=== PATIENT | female | born 1955 | race Two or more races ===

== ENCOUNTER 2016-06-13 11:08 | Observation (INO) | payer OTHER ==
[~2016-06-13] VITALS: Ht 162.6 cm; Wt 78.6 kg
[~2016-06-13 11:08] MED LIST: NO MEDS.
[2016-06-13] MEDS ORDERED: ASPIRIN 325 MG TAB PO STA (11:16)
--- NOTE | 2016-06-13 11:25 | ERA ---
ER Documentation Chief Complaint Date/Time DATE: 06/13/16 TIME: 11:22 Chief Complaint CHEST PRESSURE FOR THE PAST 3 DAYS. NO N/V/ NO SOB NOTED. HPI This is a 61-year-old female with no past medical history that presents to the emergency department complaining of intermittent chest pressure that has been present since Friday, 6 days prior to arrival. The patient indicated the chest pressure initially occurred Friday evening while she was sitting down after she had eaten a meal. She attributed this discomfort to possible gas. However she did not experience any history of GERD regurgitation. The patient indicates that she awoke Friday morning with a similar onset of chest pressure that lasted for roughly 10 minutes and then spontaneously resolved. Yesterday evening she had a repeat chest pressure and again roughly 3 hours prior to arrival she developed a similar episode of chest pressure that did not radiate to the neck arm back or jaw. She stated the chest pressure was 8 out of 10 in intensity. She had no associated symptoms of nausea vomiting or diaphoresis. She has had no recent travel or prolonged immobilization and has no shortness of breath at rest or exertion. The patient has no medications that she takes at home nor does she smoke cigarettes. She does indicate that her father of a myocardial infarction at the age of 51. ROS All systems reviewed and are negative except as per history of present illness. Medications Home Meds Reported Medications [No Meds.] No Conflict Check 05/13/14 Allergies Allergies: Coded Allergies: No Known Drug Allergies (Unverified Allergy, Unknown, 05/13/14) PMhx/Soc History of Surgery: Yes (CYST REMOVED, RIGHT BREAST IN 1972) Anesthesia Reaction: No Hx Neurological Disorder: No Hx Respiratory Disorders: No Hx Cardiac Disorders: No Hx Psychiatric Problems: No Hx Miscellaneous Medical Probl: No Hx Alcohol Use: No Hx Substance Use: No Hx Tobacco Use: No Physical Exam Vitals Vital Signs Date Time Temp Pulse Resp B/P Pulse Ox O2 Delivery O2 Flow Rate FiO2 06/13/16 11:11 98.6 67 20 119/61 100 Physical Exam Constitutional:Well-developed. Well-nourished. HEENT:Normocephalic. Atraumatic.Pupils were equal round reactive to light. Moist mucous membranes.No tonsillar exudates. Neck: No nuchal rigidity. No lymphadenopathy. No posterior cervical spine tenderness or step-offs. Respiratory: Not using accessory muscles of respiration.Lungs were clear to auscultation bilaterally. No rhonchi. No rales. No wheezing. Cardiovascular: Regular rate regular rhythm.No murmurs. No rubs were appreciated.S1, S2 normal. Distal pulses are palpable 2+ bilaterally. GI: Abdomen was soft. Nontender. Non Distended. No pulsatile abdominal masses or bruits. No rebound. No guarding. Bowel sounds were present and normal. Muscle skeletal: Full range of motion of both the upper and lower extremities bilaterally.Normal muscle tone.No assymetrical calf tenderness or swelling. Skin: No petechia, no purpura. No lesions on the palms or the soles of the feet. No maculopapular rash. NEURO: Patient was alert, awake, orientated x3.No facial droop. Gait observed and normal with no ataxia.Speech had regular rate and rhythm. No focal neurological deficits. Results 24 hrs Current Medications Medications (Trade) Dose Ordered Sig/Huma Route PRN Reason Start Time Stop Time Status Last Admin Dose Admin Aspirin (Aspirin) 325 mg ONCE STAT PO 06/13/16 11:16 06/13/16 11:18 DC Nitroglycerin (Nitroglycerin (Sl Tab) 0.4 Mg) 1 tab Q5M UP TO 3 DOSES PRN SL CHEST PAIN 06/13/16 11:30 Procedures/MDM The patient presented to the emergency department with chest pain. My clinical evaluation and workup was to distinguish minor causes of chest pain from acute life threatening conditions such as myocardial infarction, pulmonary embolism, aortic dissection, esophageal rupture, cardiac tamponade. The patient was placed on a cardiac technologist and continuous pulse oximetry. IV access established by nursing staff. The patient received 325 mg of aspirin p.o. and nitroglycerin with no changes in her symptoms. 12 Lead EKG tracing ordered and reviewed by myself showed: Normal sinus rhythm of 60 bpm and no arrhythmia. SC interval normal. QRS duration normal. No ST segment elevation No ST segment depression. No changes consistent with acute ischemia. Given that the patient has significant family history of coronary artery disease with no previous cardiac workup I did feel the patient required admission for serial 12-lead EKG tracings and cardiac set of enzymes. The patient will be admitted to the hospitalist in serious condition to the telemetry service Departure Diagnosis: Primary Impression: Chest pain Condition: Serious CHYNA KHAN Jun 13, 2016 11:25
[2016-06-13] MEDS ORDERED: NITROGLYCERIN (SL) 0.4 MG TAB SL PRN ×2 (11:30→15:00)
--- NOTE | 2016-06-13 11:55 | RADRPT ---
PROCEDURE: Chest Radiograph. CLINICAL INDICATION: Chest pain TECHNIQUE: Single frontal chest radiograph. COMPARISON: None available FINDINGS: The cardiomediastinal silhouette is within normal limits. No infiltrate or effusion is seen. Th e bones are intact. IMPRESSION: 1. Unremarkable chest radiograph. RPTAT: KK .Jeremy Lan MD, MD Date Time Electronically viewed and signed by .Jeremy Lan MD, on 06/13/2016 11:54 .B/
[2016-06-13 12:11] LABS: BASOPHILS % 0.4 % (0.0-2.0); EOSINOPHILS # 0.1 10^3/ul (0.0-0.5); EOSINOPHILS % 1.6 % (0.0-7.0); HEMATOCRIT 40.9 % (37.0-47.0); HEMOGLOBIN 13.8 g/dl (12.0-16.0); LYMPHOCYTES # 1.6 10^3/ul (0.8-2.9); MEAN CORPUSCULAR HEMOGLOBIN 28.7 pg (29.0-33.0); MEAN CORPUSCULAR HGB CONC 33.8 g/dl (32.0-37.0); MEAN CORPUSCULAR VOLUME 84.8 fl (82.0-101.0); MEAN PLATELET VOLUME 8.6 fl (7.4-10.4); MONOCYTE # 0.5 10^3/ul (0.3-0.9); MONOCYTES % 7.2 % (0.0-11.0); NEUTROPHIL # 4.4 10^3/ul (1.6-7.5); NEUTROPHILS % 66.8 % (39.0-77.0); PLATELET COUNT 245 10^3/UL (140-440); RED BLOOD COUNT 4.82 10^6/ul (4.20-5.40); RED CELL DISTRIBUTION WIDTH 12.6 % (11.5-14.5); UNCORRECTED WBC 6.6 10^3/ul (4.8-10.8); WHITE BLOOD COUNT 6.6 10^3/ul (4.8-10.8)
[2016-06-13 12:15] LABS: CONDITION 1
[2016-06-13 12:23] LABS: INR 0.93; PROTIME 12.5 Sec (12.2-14.2)
[2016-06-13 12:24] LABS: PARTIAL THROMBOPLASTIN TIME 27.5 Sec (25.0-35.0)
[2016-06-13 12:52] LABS: ALBUMIN 4.1 g/dl (3.3-4.9)
[2016-06-13 12:53] LABS: CHLORIDE 102 mmol/L (97-110); SODIUM 144 mmol/L (135-144)
[2016-06-13 12:55] LABS: ALANINE AMINOTRANSFERASE 19 IU/L (13-69); ALKALINE PHOSPHATASE 117 IU/L (42-121); ASPARTATE AMINO TRANSFERASE 21 IU/L (15-46); CARBON DIOXIDE 30 mmol/L (21-31); CREATININE 0.58 mg/dl (0.44-1.00)
[2016-06-13 12:56] LABS: BLOOD UREA NITROGEN 14 mg/dl (7-20); CALCIUM 9.6 mg/dl (8.4-10.2); CREATINE KINASE 54 IU/L (23-200); GLUCOSE 74 mg/dl (70-220)
[2016-06-13 12:57] LABS: ANION GAP 16 (8-16); TOTAL PROTEIN 8.2 g/dl (6.1-8.1)
[2016-06-13 13:02] LABS: B-TYPE NATRIURETIC PEPTIDE 88 PG/ML (0-125); CK-MB 0.45 ng/ml (0.0-2.4)
[2016-06-13 13:24] LABS: BILIRUBIN,INDIRECT 0.1 mg/dl (0-1.1); BILIRUBIN,TOTAL 0.1 mg/dl (0.2-1.3); TROPONIN-I < 0.012 ng/ml (0.00-0.12)
[2016-06-13] MEDS ORDERED: ONDANSETRON 4 MG INJ IV PRN ×2 (14:00→15:00)
[2016-06-13] MEDS ORDERED: ACETAMINOPHEN 325 MG TAB PO PRN ×2 (14:00→15:00)
[2016-06-13] MEDS ORDERED: hydrALAzine 20 MG INJ IV PRN (15:00)
[2016-06-13] MEDS ORDERED: HYDROCODONE/APAP (5/325) TAB PO PRN (15:00)
[2016-06-13] MEDS ORDERED: NACL 0.9% 3 ML SYG IV SCH (15:00)
[2016-06-13] MEDS ORDERED: BISACODYL (EC) 5 MG TAB PO PRN (15:00)
[2016-06-13] MEDS ORDERED: LORAZEPAM 2 MG INJ IV PRN (15:00)
[2016-06-13] MEDS ORDERED: morphine 2 MG INJ IV PRN (15:00)
[2016-06-13 15:54] VITALS: TEMP 98
--- NOTE | 2016-06-13 16:19 | HP ---
DATE OF ADMISSION: 06/13/2016 TIME OF EVALUATION: 1500. REASON FOR ADMISSION: Intermittent chest pressure/pain. CONSULTANTS: Dr. Tone Figueroa, Cardiology. HISTORY OF PRESENT ILLNESS: This is a 61-year-old female patient who denies any significant past medical history, who came to the emergency room with a chief complaint of intermittent chest pressure/pain that started on 06/08/2016. The patient verbalized her pain as substernal, that comes on without any exertion and goes away. The patient denied any alleviating or aggravating factors. The patient verbalized that initially she thought it was gastric reflux; however, these episodes of chest pressure continued to be happening since 06/08/2016. The patient verbalized that there was no associated nausea, vomiting, or diaphoresis. She denied any associated dizziness. The patient denied any radiation of the chest pressure. The patient verbalized spontaneous resolution of the chest pressure. There was no associated dyspnea. She denied any fevers, chills, abdominal pain, diarrhea, hematochezia, dysuria or hematuria. She denied any recent long travels, long flights, or calf pain. She denied using any OTC remedies. The patient has a strong family history of early coronary artery disease. Her father at the age of 51 years because of a myocardial infarction. The patient also verbalized that her elder sister has heart problems. 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 In the emergency room, the patient's 12-lead EKG showed normal sinus rhythm with prolonged QT interval. The patient's initial set of troponins was negative. The patient's chest x-ray was negative for any acute cardiopulmonary findings. The patient was given oral aspirin in the emergency room. PAST MEDICAL HISTORY: Denies. PAST SURGICAL HISTORY: Right breast nonmalignant cyst removed in 1972. HOME MEDICATIONS: None. ALLERGIES: NO KNOWN DRUG ALLERGIES. FAMILY HISTORY: Positive for CAD and diabetes. SOCIAL HISTORY: The patient lives at home with her family. Self-employed. She denies any tobacco use; however, she verbalized that she smokes weed every now and then. Drinks socially. REVIEW OF SYSTEMS: A 12-point review of system was negative, other than what is mentioned in the history of present illness. PHYSICAL EXAMINATION: VITAL SIGNS: Temperature 98.6, pulse is 67, respiratory rate 20, blood pressure 119/61, oxygen saturation 100% on room air. GENERAL: This is a slightly overweight female patient, lying in bed, in no apparent distress. HEENT: Head is normocephalic and atraumatic. Eyes, anicteric sclerae. Conjunctivae are clear. ENT: Nasal septum is midline. Oral mucosa is moist. NECK: Supple. No JVD noticed. RESPIRATORY: Bilaterally clear to auscultation. No adventitious breath sounds. No use of accessory muscles of respiration. CARDIAC: Regular rhythm and rate. S1, S2 heard. GASTROINTESTINAL: Abdomen is soft, nontender, nondistended. Bowel sounds are positive in all 4 quadrants. GENITOURINARY: Deferred. EXTREMITIES: No cyanosis, no clubbing, no edema. Peripheral pulses are palpable. NEUROLOGIC: The patient is awake, alert and oriented. Cranial nerves are grossly intact. LABORATORY AND DIAGNOSTIC DATA: WBC 6.6, hemoglobin 13.8, hematocrit 40.9, platelet count 245. Sodium 144, potassium 4.0, chloride 102, carbon dioxide 30 , anion gap 16, BUN 14, creatinine 0.58, glucose 74, calcium 9.6. AST 21, ALT 90, alkaline phosphatase 129, creatinine kinase 54. Troponin I less than 0.012. BNP 88, total protein 8.2, albumin 4.1, lipase 94. PT 12.5, INR 0.93, PTT 27.5. 12-lead EKG, normal sinus rhythm. Prolonged QT interval. Chest x-ray. Unremarkable chest radiograph. IMPRESSION: This is a 61-year-old female patient who came to the emergency room with multiple episodes of intermittent chest pressure, who has a strong family history of early coronary artery disease, who will be admitted here for further treatment and evaluation. ASSESSMENT AND PLAN: 1. Intermittent episodes of chest pressure/pain. To rule out acute coronary syndrome. As mentioned earlier, the patient has a strong family history of CAD. Serial troponins will be ordered. A 2D echocardiogram will be obtained. A cardiology consult will be obtained. The patient will be started on low-dose aspirin. Plan. The patient will be admitted to the inpatient telemetry floor. The patient will be started on a regular diet. The patient will remain a FULL CODE. Activities will be as tolerated. The patient will be started on DVT prophylaxis and gastrointestinal prophylaxis. A cardiology consult was already called on this patient. Baseline labs, including a hemoglobin A1c, a fasting lipid panel and thyroid function will be obtained on this patient. The rest of the patient's management will be based on the clinical course, the results of diagnostic studies, and inputs from the consultants. Based on the patient's clinical presentation, she most probably requires at least a 1-midnight's stay for further management and evaluation of her clinical presentation. The case and management of this patient was fully discussed with Dr. Flowers. Approximately 40 minutes was spent on the history and physical of this patient. ADRIAN FLOWERS MD, AM/HECTOR Conf#: [id number] DID#: [id number] MTDD
[2016-06-13 16:30] VITALS: BP 108/52; PULSE 63; RESP 20; Ht 162.6 cm; Wt 78.6 kg
[2016-06-13 16:47] VITALS: PULSE 58
[2016-06-13 17:57] LABS: HEMOGLOBIN A1C 5.6 % (0-5.9)
[2016-06-13 18:42] LABS: CREATINE KINASE 81 IU/L (23-200)
[2016-06-13 18:52] LABS: CK-MB 0.46 ng/ml (0.0-2.4)
[2016-06-13 19:15] LABS: TROPONIN-I < 0.012 ng/ml (0.00-0.12)
[2016-06-13 20:00] VITALS: BP 109/47; RESP 20
[2016-06-13 20:07] VITALS: PULSE 66
[2016-06-13] MEDS: FAMOTIDINE 20 MG TAB PO SCH (20:18)
[2016-06-14] VITALS (10 sets, daily range): BP systolic 100–150; BP diastolic 47–68; PULSE 52–73; RESP 18–20
[2016-06-14 01:36] LABS: ADD UMIC YES; URINE BILIRUBIN (Dip) NEGATIVE (NEGATIVE); URINE BLOOD (Dip) NEGATIVE (NEGATIVE); URINE COLOR LT. YELLOW (YELLOW); URINE GLUCOSE (Dip) NEGATIVE (NEGATIVE); URINE KETONES (Dip) NEGATIVE (NEGATIVE); URINE LEUKOCYTE ESTERASE (Dip) 1+ (NEGATIVE); URINE NITRITE (Dip) NEGATIVE (NEGATIVE); URINE TOTAL PROTEIN (Dip) NEGATIVE (NEGATIVE); URINE UROBILINOGEN (Dip) 0.2 E.U./dL (0.1-1.0)
[2016-06-14 01:49] LABS: BACTERIA,URINE FEW; SQUAMOUS EPITHELIAL CELL,UR FEW; URINE RBCS 0-2 /HPF (0)
[2016-06-14 03:11] LABS: BARBITURATES NEGATIVE (NEGATIVE); BENZODIAZEPINES NEGATIVE (NEGATIVE); CANNABINOIDS POSITIVE (NEGATIVE); COCAINE NEGATIVE (NEGATIVE); OPIATES NEGATIVE (NEGATIVE)
[2016-06-14 08:16] LABS: BASOPHILS % 0.4 % (0.0-2.0); EOSINOPHILS # 0.1 10^3/ul (0.0-0.5); EOSINOPHILS % 2.4 % (0.0-7.0); HEMATOCRIT 37.7 % (37.0-47.0); LYMPHOCYTES # 1.9 10^3/ul (0.8-2.9); LYMPHOCYTES % 34.5 % (15.0-51.0); MEAN CORPUSCULAR HEMOGLOBIN 29.2 pg (29.0-33.0); MEAN CORPUSCULAR HGB CONC 34.5 g/dl (32.0-37.0); MEAN CORPUSCULAR VOLUME 84.6 fl (82.0-101.0); MONOCYTE # 0.4 10^3/ul (0.3-0.9); MONOCYTES % 7.8 % (0.0-11.0); NEUTROPHILS % 54.9 % (39.0-77.0); PLATELET COUNT 222 10^3/UL (140-440); RED BLOOD COUNT 4.46 10^6/ul (4.20-5.40); RED CELL DISTRIBUTION WIDTH 12.6 % (11.5-14.5); UNCORRECTED WBC 5.4 10^3/ul (4.8-10.8); WHITE BLOOD COUNT 5.4 10^3/ul (4.8-10.8)
[2016-06-14 08:22] LABS: ALBUMIN 3.6 g/dl (3.3-4.9)
[2016-06-14 08:23] LABS: POTASSIUM 3.8 mmol/L (3.5-5.1)
[2016-06-14 08:25] LABS: ALBUMIN/GLOBULIN RATIO 0.97; BILIRUBIN,INDIRECT 0.1 mg/dl (0-1.1); BILIRUBIN,TOTAL 0.1 mg/dl (0.2-1.3); CREATININE 0.55 mg/dl (0.44-1.00); TOTAL PROTEIN 7.3 g/dl (6.1-8.1)
[2016-06-14 08:26] LABS: CALCIUM 9.5 mg/dl (8.4-10.2)
[2016-06-14 08:31] LABS: PHOSPHORUS 3.6 mg/dl (2.5-4.9)
[2016-06-14 08:32] LABS: MAGNESIUM 1.9 mg/dl (1.7-2.5)
[2016-06-14 08:39] LABS: CONDITION 1
[2016-06-14] MEDS: FAMOTIDINE 20 MG TAB PO SCH (08:53)
[2016-06-14] MEDS ORDERED: ENOXAPARIN 40 MG/0.4 ML SYG SC SCH (09:00)
[2016-06-14] MEDS ORDERED: ASPIRIN 81 MG TAB PO SCH (09:00)
[2016-06-14 09:10] LABS: CREATINE KINASE 92 IU/L (23-200)
[2016-06-14 09:20] LABS: CK-MB 0.48 ng/ml (0.0-2.4)
[2016-06-14 09:33] LABS: TROPONIN-I < 0.012 ng/ml (0.00-0.12)
--- NOTE | 2016-06-14 17:31 | RADRPT ---
Echocardiogram Report Patient Name: ZULMA WEBER Gender: Female Date: 1955 Study Date: 14-Jun-2016 Manager Inspection: Og Diaz RUST Location: [id number] Ref. Physician: ADRIAN HILL Quality: Adequate Procedures: Transthoracic echocardiogram with complete 2D, M-Mode, and doppler examination. Indications: Chest Pain. 2D/M Mode Doppler Measurement Value Normal Ranges Measurement Value Normal Ranges LVIDd 2D 3.7 3.5 - 5.6 cm AV Peak Amari 1.3 m/sec LVIDs 2D 2.3 2.1 - 4.1 cm AV Peak PG 7.1 mmHg LVPWd 2D 0.9 0.6 - 1.1 cm LVOT Peak Amari 1.1 m/sec IVSd 2D 0.8 0.6 - 1.1 cm LVOT Peak PG 5.0 mmHg AoR Diam 2D 2.6 2.0 - 3.7 cm MV E Peak Amari 0.8 m/sec EDV 2D 59.4 cm3 MV A Peak Amari 0.7 m/sec ESV 2D 12.5 cm3 MV E/A 1.2 LA Dimen 2D 2.6 2.3 - 4.0 cm MV Decel Time 131 msec MV Decel [place] 6 MV E/A 1.2 TR Peak Amari 2.2 m/sec TR Peak PG 19.7 mmHg RVSP 23.0 mmHg Findings Left Ventricle: Normal left ventricular systolic function. Normal left ventricular cavity size. Normal left ventricular wall thickness. Ejection fraction is visually estimated at 6065 %. Tissue Doppler/Mitral Doppler indices are within normal limits. Right Ventricle: Normal right ventricular size. Normal right ventricular systolic function. Left Atrium: The left atrium is normal in size. Right Atrium: The right atrium is normal in size. Mitral Valve: Mitral valve leaflets appear mildly thickened. Mild mitral annular calcification. No mitral valve regurgitation is seen. Aortic Valve: Normal appearance of the aortic valve. No significant aortic stenosis or insufficiency. Tricuspid Valve: Normal appearance of the tricuspid valve. Estimated peak PA systolic pressure 23 mmHg. There is trace tricuspid regurgitation. Pulmonic Valve: Normal pulmonic valve appearance. There is trace pulmonic regurgitation. Pericardium: Normal pericardium with no significant pericardial effusion. Aorta: Normal aortic root. IVC: Normal size and normal respiratory collapse consistent with normal right atrial pressure. Conclusions 1.The left ventricle is normal in size and systolic function. 2.Estimated left ventricular ejection fraction of 60-65%. Electronically Signed By: Tone Figueroa 14-Jun-2016 17:31:36 -0800 Patient Name: ZULMA WEBER Study Date: 14-Jun-[id number]
--- NOTE | 2016-06-14 18:05 | CONS ---
Date/Time of Note Date/Time of Note DATE: 06/14/16 TIME: 18:01 Assessment/Plan Assessment/Plan Chief Complaint/Hosp Course Assessment: Atypical chest pain, some pleuritic features - ruled out for myocardial infarction, normal echocardiogram Family history of coronary artery disease Recommendations: -no additional inpatient cardiac work up -cardiac stress testing as outpatient for further risk stratification given family history Problems: Consultation Date/Type/Reason Admit Date/Time Jun 13, 2016 at 13:51 Type of Consultation: Cardiology Reason for Consultation chest pain Referring Provider: ADRIAN HILL NP Hx of Present Illness The patient is a 61 year-old female with no significant past medical history who presented with a one week history of intermittent chest pain. She describes a sharp retrosternal chest pain that is worsened by coughing or deep inspiration. The pain usually occurs at night and is unrelated to exertion. 14 point review of systems negative other than per HPI. Past Medical History Medical History: no pertinent history Past Surgical History Past Surgical Hx: other (benign cyst removal from right breast) Family History Significant Family History: heart disease (father from myocardial infarction at age 51) Social History Alcohol Use: occasionally Smoking Status: Never smoker Drug Use: marijuana Exam/Review of Systems Vital Signs Vitals Vital Signs Date Time Temp Pulse Resp B/P Pulse Ox O2 Delivery O2 Flow Rate FiO2 06/14/16 16:19 98.4 86 18 150/68 96 06/13/16 16:30 Room Air Exam Constitutional: alert, well developed Psych: nl mood/affect, no complaints Head: atraumatic, normocephalic Eyes: nl conjunctiva, nl lids ENMT: nl external ears & nose, nl nasal mucosa & septum Neck: non-tender, supple, No jvd Respiratory: clear to auscultation, normal air movement Cardiovascular: regular rate and rhythm Gastrointestinal: non-tender, soft Musculoskeletal: nl extremities to inspection Extremities: No clubbing, No cyanosis, No edema Neurological: nl mental status Results Result Diagram: 06/14/16 0550 06/14/16 0550 Results 24 hrs Laboratory Tests Test 06/13/16 18:18 06/13/16 22:10 06/14/16 05:50 Creatine Kinase 81 92 Creatine Kinase Index 0.6 0.5 Creatinine Kinase MB (Mass) 0.46 0.48 Thyroid Stimulating Hormone (TSH) 0.790 Troponin I < 0.012 < 0.012 Urine Amphetamines Screen NEGATIVE Urine Bacteria FEW Urine Barbiturates NEGATIVE Urine Benzodiazepines Screen NEGATIVE Urine Bilirubin NEGATIVE Urine Cannabinoids POSITIVE Urine Clarity CLEAR Urine Cocaine Screen NEGATIVE Urine Color LT. YELLOW Urine Glucose NEGATIVE Urine Hemoglobin NEGATIVE Urine Ketones NEGATIVE Urine Leukocyte Esterase 1+ H Urine Microscopic RBC 0-2 Urine Microscopic WBC 2-5 Urine Nitrite NEGATIVE Urine Opiates Screen NEGATIVE Urine Specific [place] 1.015 Urine Squamous Epithelial Cells FEW Urine Total Protein NEGATIVE Urine Urobilinogen 0.2 E.U./dL Urine pH 6.5 Alanine Aminotransferase (ALT/SGPT) 21 Albumin 3.6 Albumin/Globulin Ratio 0.97 Alkaline Phosphatase 110 Anion Gap 16 Aspartate Amino Transf (AST/SGOT) 19 Basophils # 0.0 Basophils % 0.4 Blood Urea Nitrogen 12 Calcium Level 9.5 Carbon Dioxide Level 26 Chloride Level 105 Cholesterol Level 151 Cholesterol/HDL Ratio 3.0 Creatinine 0.55 Direct Bilirubin 0.00 Eosinophils # 0.1 Eosinophils % 2.4 Globulin 3.70 H Glucose Level 87 HDL Cholesterol 50 Hematocrit 37.7 Hemoglobin 13.0 Indirect Bilirubin 0.1 LDL Cholesterol, Calculated 83 Lymphocytes # 1.9 Lymphocytes % 34.5 Magnesium Level 1.9 Mean Corpuscular Hemoglobin 29.2 Mean Corpuscular Hemoglobin Concent 34.5 Mean Corpuscular Volume 84.6 Mean Platelet Volume 9.0 Monocytes # 0.4 Monocytes % 7.8 Neutrophils # 3.0 Neutrophils % 54.9 Nucleated Red Blood Cells # 0.0 Nucleated Red Blood Cells % 0.0 Phosphorus Level 3.6 Platelet Count 222 Potassium Level 3.8 Red Blood Count 4.46 Red Cell Distribution Width 12.6 Sodium Level 143 Total Bilirubin 0.1 L Total Protein 7.3 Triglycerides Level 90 White Blood Count 5.4 Medications Medications Current Medications Lorazepam (Ativan) 0.5 mg Q6H PRN IV ANXIETY; Start 06/13/16 at 15:00 Ondansetron HCl (Zofran Inj) 4 mg Q6H PRN IV NAUSEA AND/OR VOMITING; Start at 15:00 Aspirin (Aspirin) 81 mg DAILY PO Last administered on 06/14/16t 08:53; Admin Dose 81 MG; Start 06/14/16 at 09:00 Acetaminophen (Tylenol Tab) 650 mg Q6H PRN PO PAIN LEVEL 1-3 OR FEVER; Start at 15:00 Acetaminophen/ Hydrocodone Bitart ([place] (5/325)) 1 tab Q6H PRN PO PAIN LEVEL 4 -6; Start 06/13/16 at 15:00 Morphine Sulfate (morphine) 2 mg Q4H PRN IV PAIN LEVEL 7-10; Start 06/13/16 at 15:00 Bisacodyl (Dulcolax) 5 mg DAILY PRN PO CONSTIPATION; Start 06/13/16 at 15:00 Famotidine (Pepcid) 20 mg Q12 PO Last administered on 06/14/16 08:53; Admin Dose 20 MG; Start 06/13/16 at 21:00 Enoxaparin Sodium (Lovenox) 40 mg DAILY SC Last administered on 06/14/16 08:56 ; Admin Dose 40 MG; Start 06/14/16 at 09:00 Hydralazine HCl (Apresoline) 10 mg Q6H PRN IV SBP>160; Start 06/13/16 at 15:00 Nitroglycerin (Nitroglycerin (Sl Tab) 0.4 Mg) 1 tab Q5M PRN SL ANGINA; Start at 15:00 SONIA ESTRADA MD Jun 14, 2016 18:05
--- NOTE | 2016-06-14 18:09 | PDOCDIS ---
Discharge Instructions DIAGNOSIS Discharge Diagnosis: Atypical chest pain CONDITION Patient Condition: Stable HOME CARE INSTRUCTIONS: Special Diet: REGULAR OTHER ORDERS: Other Orders: 1. Regular diet as tolerated. 2. Activities as tolerated. 3. Follow up with your PCP in 1 week and arrange for outpatient stress test. ADRIAN HILL NP Jun 14, 2016 18:09
--- NOTE | 2016-06-14 20:18 | DS ---
DATE OF ADMISSION: 06/13/2016 DATE OF DISCHARGE: 06/14/2016 FINAL DIAGNOSES: 1. Atypical chest pain. Acute coronary syndrome ruled out. 2. Marijuana abuse. 3. Obesity. CONSULTANTS: Dr. Tone Figueroa, cardiology. HOSPITAL COURSE: This is a 61-year-old female who denies any significant past medical history who came to the emergency room with chief complaint of intermittent chest pressure/pain that started on 06/08/2016. The patient verbalized her chest pain as substernal. She verbalized that the pain comes on without any exertion and goes away. The patient denied any alleviating or aggravating factors. The patient verbalized that initially she thought it was gastric reflux. However, these episodes of chest pressure continued to be happening since 06/08/2016. The patient verbalized no associated nausea, vomiting, or diaphoresis. The patient has a family history of early cardiac . Provided the patient's history of present illness and significant family history, a clinical decision was made to admit the patient to inpatient setting to have her further evaluated. The patient was admitted to inpatient telemetry floor. Serial troponins were ordered. A 2D echocardiogram was ordered. Cardiology consult was obtained. The patient's serial troponins remained negative. The patient's 2D echocardiogram showed preserved left ventricular ejection fraction. The patient 's chest pain was concluded to be secondary to musculoskeletal versus pleuritic in origin. The patient was cleared by cardiology to be discharged home. However, cardiology recommended outpatient cardiac stress test because of the strong family history of heart disease. The patient's fasting lipid panel was optimal. The patient's hemoglobin A1c was 5.6. The patient was noticed some vitamin D deficiency. The patient also had positive marijuana in urine, which she admitted to. The patient was advised on stopping the use of recreational drugs. The patient had a stable hospital course. The patient was cleared by cardiology to be discharged home. The patient denied any complaints at the time of discharge. DISCHARGE DISPOSITION AND PLAN: The patient will be discharged home today. The patient was instructed to take a regular diet as tolerated. She was instructed to resume activities as tolerated. The patient was instructed to follow up with her primary care physician in 1 week and to arrange for outpatient stress test. The patient verbalized understanding of her discharge instructions. CONDITION AT DISCHARGE: Stable. DISCHARGE MEDICATIONS: None. PERTINENT LABORATORY AND DIAGNOSTIC DATA: 1. 2-D echocardiogram. Ejection fraction of 60% to 65%. The left ventricular size is normal. Estimated PA systolic pressure of 203 mmHg. 2. Urine drug screen positive for cannabinoids. 3. Latest CBC: WBC 5.4, hemoglobin 13.9, hematocrit 37.7, platelet count 222. 4. Latest BMP: Sodium 143, potassium 3.8, chloride 105, carbon dioxide 26, anion gap 16, BUN 12, creatinine 0.55, glucose 87, calcium 9.5, phosphorus 3.6, magnesium 1.9. 5. Hemoglobin A1c 5.6. 6. Fasting lipid panel: Triglycerides 90, total cholesterol 151, LDL 83, HDL 50. 7. Vitamin D level 22.8. 8. Thyroid panel: TSH 0.790. Free T4 of 0.99. At this time, I would like to thank Dr. Figueroa for seeing the patient and providing clinical recommendations. The case and management of this patient was fully discussed with Dr. Flowers. Approximately 35 minutes was spent on coordinating the discharge on this patient. ADRIAN FLOWERS MD AM/NTS Conf#: [id number] DID#: [id number] CC: ARCHANA GOMEZ MD;*EndCC* MTDD
== END 2016-06-14 19:09 | disposition home or self-care (01) ==
LOC: E/R 11:08 → MS4 13:51 → UNDOADMOB 16:18
PROVIDERS: ADMIT Family Medicine; ATTEND Family Medicine
DX: R07.89 Other chest pain (principal); F12.10 Cannabis abuse, uncomplicated; E66.9 Obesity, unspecified; Z68.29 Body mass index [BMI] 29.0-29.9, adult
CPT/HCPCS: 71010; 80053; 80061; 80307; 81001; 81003; 82550; 82553; 82652; 83036; 83690; 83735; 83880; 84100; 84439; 84443; 84484; 85025; 85610; 85730; 93005; 93306; J1650; Z7500; Z7502; Z7610; G0378

== ENCOUNTER 2016-06-20 15:54 | Outpatient (CLI) | payer OTHER ==
[~2016-06-20] VITALS: Ht 161.3 cm; Wt 80.9 kg
[2016-06-20 15:58] VITALS: BP 129/75; PULSE 61; RESP 16; Ht 161.3 cm; Wt 80.9 kg
--- NOTE | 2016-06-20 16:06 | PN ---
Date/Time of Note Date/Time of Note DATE: 06/20/16 TIME: 16:06 Outpatient Progress Note Chief Complaint Chest pain HPI Chest pain/adequate onset, few minutes duration, patient was hospitalized, provoked by smoking marijuana, no radiation or shoulder or back, no diaphoresis, Obesity/patient slightly obese, no history of any thyroid problem, Vitamin D deficiency/patient has slight vitamin D deficiency, no skin problem, Review of Systems Const: No Fever, no chills, no Wt. loss, no Fatigue, normal appetite, no diaphoresis. Eyes: No pain, no discharge, no redness, no visual change, no foreign body. ENT: No pain, no bleeding, no congestion, no sore throat, no dysphagia, no discharge or rhinitis. Lymph: No adenopathy, no tender nodes, no lymphedema. Resp: No SOB, no cough, no sputum, no wheezing, no chest pain. CV: No chest pain at present, patient was hospitalized with a chest pain recently,, no palpitaions, no ARROYO, no PND, no edema. GI: Normal appetite, no pain, no nausea, no vomiting, no diarrhea, no blood, no constipation. : No frequency, no urgency, no dysuria, no hematuria, no flank pain, no discharge, no bleeding. Musc: No bone/joint pain, no back pain, no neck pain, no knee pain, no restricted ROM. Skin: No rash, no skin lesions, no erythema, no laceration, no bruising, no pruritus. Neuro: No VENTURA, no dizziness, no syncope, no seizure, no focal-weakness. Endo: No polyuria, no polydypsia, no dry-skin, no temp-intolerance. Psych: No hallucinations, no depression, no anxiety, no suicidal ideation. Ext: No edema, no pain, no ulcer, no weakness. Physical Exam Vital Signs Date Time Temp Pulse Resp B/P Pulse Ox O2 Delivery O2 Flow Rate FiO2 06/20/16 15:58 97.6 61 16 129/75 96 Room Air General Appearance: A 61 year-old [female who appears well-developed, well- nourished, in no acute distress. HEENT: Head normocephalic, atraumatic. Pupils equal, round, reactive to light and accommodate. Sclerae are no jaundice. Nasal turbinates pink without erythema or nasal discharge. Mucous membranes pink and moist without lesions. Oropharynx clear without any exudate or discharge. NECK: Supple. Trachea midline, No thyromegaly, No cervical lymphadenopathy, No mass, No carotid bruits, No JVD, Carotid pulses 2+ bilaterally. PULMONARY: Clear to auscultaion bilaterally, No retractions, Chest expansion symmetric bilaterally, no rales, no ronchi, no dulness on percussion. CARDIAC: Normal SI and S2, Regular rate and rythm, no murmur, gallop, or rub. GASTROINTESTINAL: Abdomen is soft, non-tender, Non Rigid, No distention, Positive bowel sounds x4 quadrants, Liver normal. SKIN: Warm, dry, no rash, no bruise, no echmosis. EXTREMITIES: Bilateral lower extremities normal, no edema, no phlabitus, pulse palpable, no contracture. MUSCULOSKELETAL: Spine Normal, Non-tender, Normal range of motion, No swelling, no deformity, no clubbing, or cyanosis, the patient has no edema to bilateral lower extremities, dorsalis pedis pulses palpable bilaterally. NEUROLOGIC: The patient is awake, alert, oriented, responding to yes/no questions appropriately, moving all extremities, cranial nerve intact, normal strenght, normal power, normal coordination, normal gait. Allergies Coded Allergies: No Known Drug Allergies (Unverified Allergy, Unknown, 05/13/14) [facility] Chest pain/obesity/vitamin D deficiency Social Hx No smoking cigarettes, occasionally socially smokes marijuana with her friends, no alcohol, no drugs, Family Hx Family history of heart problem, father at age of 51, and also history of diabetes, Assessment/Plan Impression Chest pain resolved/vitamin D deficiency/obesity/status post right breast cyst removal Plan Patient education done about weight and heart problem, and smoking, patient advised to stop smoking marijuana, Patient advised to start aspirin 81 mg daily, Patient encouraged to follow with the primary care physician, also explained if any chest pain to call physician and follow-up visit, Advised to lose weight, Patient advised to take vitamin D thousand unit daily, patient vitamin D level was 22, Medications Home Meds Discontinued Reported Medications [No Meds.] No Conflict Check 05/13/14 DARYN WERNER MD Jun 20, 2016 16:06
== END 2016-06-20 16:38 | disposition home or self-care (01) ==
LOC: DCC 15:54
PROVIDERS: ATTEND Internal Medicine
DX: R07.9 Chest pain, unspecified (principal); E55.9 Vitamin D deficiency, unspecified; F12.10 Cannabis abuse, uncomplicated; E66.9 Obesity, unspecified; Z68.31 Body mass index [BMI] 31.0-31.9, adult; Z98.890 Other specified postprocedural states
CPT/HCPCS: G0463

== ENCOUNTER 2016-07-08 11:27 | Outpatient (CLI) | payer OTHER ==
[~2016-07-08] VITALS: Ht 161.3 cm; Wt 80.5 kg
[2016-07-08 11:31] VITALS: BP 129/58; PULSE 74; RESP 16; Ht 161.3 cm; Wt 80.5 kg
--- NOTE | 2016-07-08 11:41 | PN ---
Date/Time of Note Date/Time of Note DATE: 07/08/16 TIME: 11:41 Outpatient Progress Note Chief Complaint Chest pain/obesity/vitamin D deficiency HPI Chest pain/patient was recently hospitalized with chest pain, patient at present does not have any chest pain, no palpitation, no dizziness, no radiation to any arm, or no pain in between the shoulder blades, no pain on exertion, Obesity/patient obese, patient advised to lose weight, no history of any thyroid problem, Vitamin D deficiency/patient has vitamin D deficiency, patient advised to take vitamin D, Review of Systems Const: No Fever, no chills, no Wt. loss, no Fatigue, normal appetite, no diaphoresis. Eyes: No pain, no discharge, no redness, no visual change, no foreign body. ENT: No pain, no bleeding, no congestion, no sore throat, no dysphagia, no discharge or rhinitis. Lymph: No adenopathy, no tender nodes, no lymphedema. Resp: No SOB, no cough, no sputum, no wheezing, no chest pain. CV: No chest pain, no palpitaions, no ARROYO, no PND, no edema. GI: Normal appetite, no pain, no nausea, no vomiting, no diarrhea, no blood, no constipation. : No frequency, no urgency, no dysuria, no hematuria, no flank pain, no discharge, no bleeding. Musc: No bone/joint pain, no back pain, no neck pain, no knee pain, no restricted ROM. Skin: No rash, no skin lesions, no erythema, no laceration, no bruising, no pruritus. Neuro: No VENTURA, no dizziness, no syncope, no seizure, no focal-weakness. Endo: No polyuria, no polydypsia, no dry-skin, no temp-intolerance. Psych: No hallucinations, no depression, no anxiety, no suicidal ideation. Ext: No edema, no pain, no ulcer, no weakness. Physical Exam General Appearance: A 61 year-old female who appears well-developed, well- nourished, in no acute distress. HEENT: Head normocephalic, atraumatic. Pupils equal, round, reactive to light and accommodate. Sclerae are no jaundice. Nasal turbinates pink without erythema or nasal discharge. Mucous membranes pink and moist without lesions. Oropharynx clear without any exudate or discharge. NECK: Supple. Trachea midline, No thyromegaly, No cervical lymphadenopathy, No mass, No carotid bruits, No JVD, Carotid pulses 2+ bilaterally. PULMONARY: Clear to auscultaion bilaterally, No retractions, Chest expansion symmetric bilaterally, no rales, no ronchi, no dulness on percussion. CARDIAC: Normal SI and S2, Regular rate and rythm, no murmur, gallop, or rub. GASTROINTESTINAL: Abdomen is soft, non-tender, Non Rigid, No distention, Positive bowel sounds x4 quadrants, Liver normal. SKIN: Warm, dry, no rash, no bruise, no echmosis. EXTREMITIES: Bilateral lower extremities normal, no edema, no phlabitus, pulse palpable, no contracture. MUSCULOSKELETAL: Spine Normal, Non-tender, Normal range of motion, No swelling, no deformity, no clubbing, or cyanosis, the patient has no edema to bilateral lower extremities, dorsalis pedis pulses palpable bilaterally. NEUROLOGIC: The patient is awake, alert, oriented, responding to yes/no questions appropriately, moving all extremities, cranial nerve intact, normal strenght, normal power, normal coordination, normal gait. Allergies Coded Allergies: No Known Drug Allergies (Unverified Allergy, Unknown, 05/13/14) PMH No change Social Hx No change Family Hx No change Assessment/Plan Impression Chest pain resolved/obesity/vitamin D deficiency Plan Patient advised to buy baby aspirin, and take every day, patient also advised to increase exercise, and lose weight, Patient advised to follow with the primary care physician and check lipid panel , if patient's LDL is high patient need to go on Lipitor, patient explained, Patient also continued vitamin D, and monitor the liver, Patient encouraged to follow with the primary care physician on regular basis, Medications Home Meds No Active Prescriptions or Reported Meds DARYN WERNER MD Jul 08, 2016 11:41
== END 2016-07-08 16:28 | disposition home or self-care (01) ==
LOC: DCC 11:27
PROVIDERS: ATTEND Internal Medicine
DX: R07.9 Chest pain, unspecified (principal); E55.9 Vitamin D deficiency, unspecified; E66.9 Obesity, unspecified; Z68.30 Body mass index [BMI] 30.0-30.9, adult
CPT/HCPCS: G0463

== ENCOUNTER 2016-08-19 16:28 | Emergency (ER) | payer OTHER ==
[~2016-08-19] VITALS: Ht 160 cm; Wt 77.0 kg
[2016-08-19 16:30] VITALS: Ht 160 cm; Wt 77.0 kg
== END 2016-08-19 18:57 | disposition left against medical advice (07) ==
LOC: E/R 16:28
DX: Z53.21 Procedure and treatment not carried out due to patient leaving prior to being seen by health care provider (principal)